=== PATIENT | female | born 1985 | race Caucasian/White ===

== ENCOUNTER 2019-05-18 11:26 | Emergency (ER) | payer OTHER ==
[~2019-05-18] VITALS: Ht 152.4 cm; Wt 65.3 kg
[2019-05-18 11:46] VITALS: Ht 152.4 cm; Wt 65.3 kg
[2019-05-18 13:59] LABS: BASOPHIL % 0.6 % (0-2); PLATELET COUNT 223 x10^3mcL (130-400); RED CELL DISTRIBUTION WIDTH 13.8 % (11.5-14.5)
[2019-05-18 14:05] LABS: CALCIUM 8.4 mg/dL (8.5-10.1); CARBON DIOXIDE 28.5 mmol/L (21-32); CHLORIDE SERUM 106 mmol/L (98-107); CREATININE SERUM 0.6 mg/dL (0.6-1.0); GFR1 > 60 mL/min; GLUCOSE SERUM 79 mg/dL (74-106); SODIUM SERUM 143 mmol/L (136-145)
[2019-05-18 14:09] LABS: ALBUMIN 3.7 g/dL (3.4-5.0); ALKALINE PHOSPHATASE 85 U/L (46-116); ALT/SGPT 25 U/L (14-59); AMYLASE 53 U/L (25-115); AST/SGOT 16 U/L (15-37); BILIRUBIN TOTAL 0.34 mg/dL (0.20-1.00); LIPASE 167 IU/L (73-393); TOTAL PROTEIN, SERUM 8.2 g/dL (6.4-8.2)
[2019-05-18 16:25] VITALS: BP 106/66
== END 2019-05-18 18:20 | disposition home or self-care (01) ==
LOC: ED 11:26
PROVIDERS: Specialist
DX: G89.29 Other chronic pain (principal); R10.12 Left upper quadrant pain; R07.81 Pleurodynia
CPT/HCPCS: J1885; Q0092